=== PATIENT | female | born 1980 | race Caucasian/White ===

== ENCOUNTER 2017-08-03 19:13 | Emergency (ER) | payer SELFPAY ==
[2017-08-03] MEDS: AUGMENTIN 875 MG TAB PO (22:45)
[2017-08-03] MEDS: ADACEL/BOOSTRIX VACCINE (DIPHTH/PERTUSS/ACELL/TETANUS)0.5ML SYR (90715) IM (22:45)
[2017-08-03] MEDS: RABIES VACCINE HUMAN 2.5 INTERNATIONAL UNITS/ML VIAL (90675) IM (22:45)
[2017-08-03] MEDS: ACETAMINOPHEN TAB 650MG DOSE (2X325MG) PO (22:45)
[2017-08-03] MEDS: RABIES IMMUNE GLOBULIN 1500 INTERNATIONAL UNITS/10 ML VIAL (90375) IM (22:45)
== END 2017-08-03 23:53 | disposition home or self-care (01) ==
LOC: M ED 19:13
DX: L03.115 Cellulitis of right lower limb (principal); S90.811A Abrasion, right foot, initial encounter; W55.01XA Bitten by cat, initial encounter; W55.03XA Scratched by cat, initial encounter; Y92.015 Private garage of single-family (private) house as the place of occurrence of the external cause; Z88.1 Allergy status to other antibiotic agents; Z88.8 Allergy status to other drugs, medicaments and biological substances; F17.210 Nicotine dependence, cigarettes, uncomplicated
CPT/HCPCS: 90715

== ENCOUNTER 2017-08-06 19:24 | Emergency (ER) | payer SELFPAY ==
[2017-08-06] MEDS: RABIES VACCINE HUMAN 2.5 INTERNATIONAL UNITS/ML VIAL (90675) IM (20:00)
== END 2017-08-06 20:26 | disposition home or self-care (01) ==
LOC: M ED 19:24
DX: Z20.3 Contact with and (suspected) exposure to rabies (principal); Z23 Encounter for immunization; S91.351D Open bite, right foot, subsequent encounter; W55.01XD Bitten by cat, subsequent encounter
CPT/HCPCS: 90471